=== PATIENT | male | born 1970 | race Caucasian/White ===

== ENCOUNTER 2017-03-09 00:41 | Inpatient (IN) | payer MEDICARE, MEDICAID ==
[2017-03-09] VITALS (9 sets, daily range): BP systolic 153–207; BP diastolic 64–82; PULSE 69–88; RESP 16–18; TEMP 96.6–99; O2SAT 90–100
[~2017-03-09] VITALS: Ht 182.9 cm; Wt 68.0 kg
[2017-03-09] MEDS ORDERED: CALC1CAP PO (00:56)
[2017-03-09] MEDS ORDERED: AMLO2.5T PO (00:56)
[2017-03-09] MEDS ORDERED: SEVE800T PO (00:56)
[2017-03-09] MEDS ORDERED: ABAC300T PO (00:56)
[2017-03-09] MEDS ORDERED: DOLU1TAB PO (00:56)
[2017-03-09] MEDS ORDERED: METO25TA6 PO (00:56)
[2017-03-09] MEDS ORDERED: DARU800T PO (00:56)
[2017-03-09] MEDS ORDERED: ONDANSETRON ODT 4 MG TAB PO ONE (01:15)
[2017-03-09] MEDS ORDERED: MORPHINE SULFATE 4 MG/ML INJ IM ONE (01:15)
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
[2017-03-09] MEDS ORDERED: SODIUM CHLOR 0.9% 1000 ML INJ 1,000 ML IV SCH (02:30)
[2017-03-09] MEDS ORDERED: MORPHINE SULFATE 4 MG/ML INJ IV PUSH ONE (02:30)
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
--- NOTE | 2017-03-09 02:56 | PD ---
Physical Exam Time Seen by Provider: 02:55 Data Data Last Documented VS Vital Signs Date Time Temp Pulse Resp B/P (MAP) Pulse Ox O2 Delivery O2 Flow Rate FiO2 03/09/17 00:46 98.4 72 16 153/64 (93) 100 Orders Orders Morphine Inj (Morphine Inj) (03/09/17 01:15) Ondansetron Odt (Zofran Odt) (03/09/17 01:15) Ct Brain W/O Iv Contrast(Rout) (03/09/17 01:14) Wrist, Complete ([id number]) (03/09/17 01:14) Electrocardiogram (03/09/17 02:24) Complete Blood Count With Diff (03/09/17 02:24) Comprehensive Metabolic Panel (03/09/17 02:24) Prothrombin Time / Inr (Pt) (03/09/17 02:24) Act Partial Throm Time (Ptt) (03/09/17 02:24) Magnesium (Mg) (03/09/17 02:24) Phosphorus (Po4) (03/09/17 02:24) Chest, Single Ap (03/09/17 02:24) Iv Access Insert/Monitor (03/09/17 02:24) Sodium Chlor 0.9% 1000 Ml Inj (Ns 1000 M (03/09/17 02:30) Morphine Inj (Morphine Inj) (03/09/17 02:30) Splint Or Brace Apply/Monitor (03/09/17 02:25) Sling Cradle Arm (03/09/17 ) Fiberglass Sugartong Sp Ad Arm (03/09/17 ) Amlodipine (Norvasc) (03/09/17 09:00) Abacavir (Ziagen) (03/09/17 09:00) Calcium Acetate (Phoslo) (03/09/17 09:00) Darunavir (Prezista) (03/09/17 09:00) Dolutegravir (Tivicay) (03/09/17 09:00) Sevelamer (Renvela) (03/09/17 09:00) Admit Order (Ed Use Only) (03/09/17 02:42) Consult Orthopedic (03/09/17 ) [facility] Medical Record Reviewed: Yes Supervised Visit with BOUCHRA: No Procedures Procedure Narrative LACERATION LOCATION: R Posterior scalp LENGTH: 2 cm NUMBER OF STITCHES/NE: 2 ne REPAIR: The area of the laceration was prepped with Betadine and sterilely draped. The wound was copiously irrigated and explored without evidence of foreign body, tendon injury or neurovascular injury. The wound was closed using ne. This was a single layer repair. Patient tolerated the procedure well. Diagnosis Primary Impression: Fracture of radius, right, closed Qualified Codes: S52.571A - Other intraarticular fracture of lower end of right radius, initial encounter for closed fracture Additional Impressions: Closed head injury Qualified Codes: S09.90XA - Unspecified injury of head, initial encounter Scalp laceration Qualified Codes: S01.01XA - Laceration without foreign body of scalp, initial encounter Condition: Stable Audrey Barrett Mar 09, 2017 02:56
[2017-03-09] MEDS ORDERED: SODIUM CHLOR 0.45% 1000 ML INJ 1,000 ML IV SCH (03:28)
[2017-03-09] MEDS ORDERED: LACTULOSE SYRUP 20 GM/30 ML CUP PO PRN (03:30)
[2017-03-09] MEDS ORDERED: BISACODYL 10 MG SUPP RECTAL PRN (03:30)
[2017-03-09] MEDS ORDERED: SENNOSIDES 8.6 MG TAB PO PRN (03:30)
[2017-03-09] MEDS ORDERED: SODIUM CHLORIDE 0.9% FLUSH 10 ML FLUSH IV FLUSH PRN ×2 (03:30→10:00)
[2017-03-09] MEDS ORDERED: ONDANSETRON HCL 4 MG/2 ML VIAL IVP PRN (03:30)
[2017-03-09] MEDS ORDERED: NALOXONE HCL 0.4 MG/ML AMP IV PUSH PRN ×2 (03:30)
[2017-03-09] MEDS ORDERED: MAGNESIUM HYDROXIDE SUSP 30 ML CUP PO PRN (03:30)
[2017-03-09 03:33] LABS: AUTOMATED NEUTROPHIL # 4.4 TH/MM3 (1.8-7.7); BASOPHIL % 0.8 % (0.0-2.0); EOSINOPHIL # 0.1 TH/MM3 (0-0.4); EOSINOPHIL % 1.1 % (0.0-4.0); HEMATOCRIT 32.6 % (39.0-51.0); HEMO FLAGS DIFF FINAL; LYMPH % 21.6 % (9.0-44.0); LYMPHOCYTE # 1.4 TH/MM3 (1.0-4.8); MEAN CELL VOLUME 102.2 FL (80.0-100.0); MEAN CORPUSCULAR HEMOGLOBIN 33.3 PG (27.0-34.0); MEAN CORPUSCULAR HGB CONC 32.6 % (32.0-36.0); MONO % 9.6 % (0.0-8.0); NEUT % 66.9 % (16.0-70.0); PLATELET COUNT 150 TH/MM3 (150-450); RED BLOOD COUNT 3.19 MIL/MM3 (4.50-5.90); RED CELL DISTRIBUTION WIDTH 15.3 % (11.6-17.2); WHITE BLOOD COUNT 6.5 TH/MM3 (4.0-11.0)
[2017-03-09 03:41] LABS: APTT (PATIENT) 26.6 SEC (24.3-30.1); PROTHROMBIN TIME - PATIENT 11.4 SEC (9.8-11.6)
[2017-03-09 03:48] LABS: ALT (GPT) 39 U/L (12-78); ANION GAP 12 MEQ/L (5-15); AST (GOT) 16 U/L (15-37); BICARBONATE 20.4 MEQ/L (21.0-32.0); BLOOD UREA NITROGEN 69 MG/DL (7-18); CHLORIDE 105 MEQ/L (98-107); GLOMERULAR FILTRATION RATE 4 ML/MIN (>89); MAGNESIUM 3.1 MG/DL (1.5-2.5); POTASSIUM 5.9 MEQ/L (3.5-5.1); SODIUM (NA) 137 MEQ/L (136-145)
[2017-03-09 03:50] LABS: ALKALINE PHOSPHATASE 122 U/L (45-117); TOTAL BILIRUBIN ADULT 0.4 MG/DL (0.2-1.0)
[2017-03-09] MEDS: ACETAMINOPHEN/HYDROcodone 325 MG/5 MG TAB PO PRN ×4 (03:51→19:36)
[2017-03-09] MEDS ORDERED: CHLORHEXIDINE GLUCONATE 2 % 1 PACK (2 CLOTHS) TOPICAL PRN (04:00)
[2017-03-09] MEDS ORDERED: SODIUM CHLORID 0.9% 500 ML IV PRN (04:00)
[2017-03-09] MEDS ORDERED: METOPROLOL TARTRATE 25 MG TAB PO PRN (04:00)
[2017-03-09] MEDS ORDERED: POVIDONE IODINE 5% (ANTISEPSIS KIT) 4 APPLICATIONS EACH NARE PRN (04:00)
[2017-03-09] MEDS ORDERED: INSULIN HUMAN REGULAR 1,000 UNITS/10 ML VIAL SQ PRN (04:00)
[2017-03-09] MEDS ORDERED: LACTATED RINGER'S 1000 ML IV PRN (04:00)
[2017-03-09] MEDS: MORPHINE SULFATE 4 MG/ML INJ IV PUSH PRN ×4 (05:49→21:12)
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
[2017-03-09] MEDS ORDERED: HYDR-3580 PO (06:54)
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
[2017-03-09] MEDS: SODIUM CHLORIDE 0.9% FLUSH 10 ML FLUSH IV FLUSH SCH ×2 (08:20→19:41)
[2017-03-09] MEDS: DOLUTEGRAVIR SODIUM 50 MG TAB PO SCH (08:21)
[2017-03-09] MEDS: ABACAVIR SULFATE 300 MG TAB PO SCH ×2 (08:21→19:37)
[2017-03-09] MEDS: DARUNAVIR 800 MG TAB PO SCH (08:22)
[2017-03-09] MEDS: amLODIPine BESYLATE 5 MG TAB PO SCH (08:22)
[2017-03-09] MEDS: SEVELAMER CARBONATE 800 MG TAB PO SCH ×3 (09:00→17:04)
[2017-03-09] MEDS: CALCIUM ACETATE 667 MG CAP PO SCH ×3 (09:47→17:04)
[2017-03-09] MEDS ORDERED: SODIUM CHLOR 0.9% 1000 ML INJ 1,000 ML OTHER PRN ×2 (09:57)
[2017-03-09] MEDS ORDERED: SODIUM CHLOR 0.9% 1000 ML INJ 1,000 ML IV PRN (09:57)
[2017-03-09] MEDS ORDERED: ONDANSETRON HCL 4 MG/2 ML VIAL IV PUSH PRN (10:00)
[2017-03-09] MEDS ORDERED: diphenhydrAMINE HCL 25 MG CAP PO PRN (10:00)
[2017-03-09] MEDS ORDERED: MANNITOL 12.5 GM/50 ML VIAL IV PRN (10:00)
[2017-03-09] MEDS ORDERED: HEPARIN SODIUM - IV 10,000 UNITS/10 ML VIAL IV FLUSH PRN (10:00)
[2017-03-09] MEDS ORDERED: GENTAMICIN SULFATE (DIALYSIS USE ONLY) 20 MG/2 ML VIAL OTHER PRN (10:00)
[2017-03-09] MEDS ORDERED: EPOETIN ALFA 10,000 UNITS/ML VIAL IV PRN (10:00)
[2017-03-09] MEDS ORDERED: NITROGLYCERIN 0.4 MG SL 25 TABS/BTL SL PRN (10:00)
[2017-03-09] MEDS ORDERED: ACETAMINOPHEN 325 MG TAB PO PRN (10:00)
[2017-03-09] MEDS ORDERED: HEPARIN SODIUM - IV 10,000 UNITS/10 ML VIAL PRN (10:00)
[2017-03-09] MEDS ORDERED: ALBUMIN HUMAN 25% 25 GM/100 ML BAGP IV PRN (10:00)
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
--- NOTE | 2017-03-09 11:52 | HHI.PR ---
Subjective Remarks Follow-up right distal radius fracture/end-stage renal disease on hemodialysis/ HIV 03/09/17-patient seen and examined, complains of inadequate pain control to right upper extremity Objective Vitals Vital Signs Date Time Temp Pulse Resp B/P (MAP) Pulse Ox O2 Delivery O2 Flow Rate FiO2 03/09/17 08:00 96.7 76 16 191/71 (111) 90 03/09/17 04:21 97.0 71 16 184/82 (116) 95 03/09/17 04:09 72 16 177/75 (109) 97 03/09/17 03:53 71 16 175/80 (111) 97 Room Air 03/09/17 02:52 69 16 172/79 (110) 97 Room Air 03/09/17 00:46 98.4 72 16 153/64 (93) 100 I/O 03/08/17 03/08/17 03/08/17 03/09/17 03/09/17 03/09/17 07:00 15:00 23:00 07:00 15:00 23:00 Intake Total 109 ml 540 ml Balance 109 ml 540 ml Intake Oral 0 ml IV Total 109 ml 540 ml # Voids 0 # Bowel Movements 0 Result Diagram: 03/09/1724903/09/17249 Imaging Last Impressions Chest X-Ray 03/09/17223 Signed Impressions: Service Date/Time: Thursday, March 09, 2017 02:26 - CONCLUSION: 1. Subsegmental airspace disease left lung base with small left effusion. Cardiomegaly. Alen Montez MD Wrist X-Ray 03/09/17113 Signed Impressions: Service Date/Time: Thursday, March 09, 2017 01:37 - CONCLUSION: 1. Mildly displaced intra-articular fractures distal radius without dislocation. Alen Montez MD Head CT 03/09/17113 Signed Impressions: Service Date/Time: Thursday, March 09, 2017 01:27 - CONCLUSION: Normal examination for a patient of this age. Alen Montez MD Objective Remarks GENERAL: NAD SKIN: Warm and dry. HEAD: Normocephalic. EYES: No scleral icterus. No injection or drainage. NECK: Supple, trachea midline. No JVD or lymphadenopathy. CARDIOVASCULAR: Regular rate and rhythm without murmurs, gallops, or rubs. RESPIRATORY: Breath sounds equal bilaterally. No accessory muscle use. GASTROINTESTINAL: Abdomen soft, non-tender, nondistended. MUSCULOSKELETAL: No cyanosis, or edema. Dressing over right wrist BACK: Nontender without obvious deformity. No CVA tenderness. A/P Problem List: (1) Fracture of radius, right, closed ICD Code: S52.91XA - Unspecified fracture of right forearm, initial encounter for closed fracture Status: Acute (2) Scalp laceration ICD Code: S01.01XA - Laceration without foreign body of scalp, initial encounter Status: Acute (3) HIV (human immunodeficiency virus infection) ICD Code: B20 - Human immunodeficiency virus [HIV] disease (4) End-stage renal disease on hemodialysis ICD Code: N18.6 - End stage renal disease; Z99.2 - Dependence on renal dialysis (5) Hypertension ICD Code: I10 - Essential (primary) hypertension Assessment and Plan 46-year-old male with Distal radius fracture: Orthopedics has been consulted. - Conservative management per orthopedic surgery Headache/scalp laceration: This has been repaired with ne. Appear clean. Continue to monitor. Pain control as needed. End-stage renal disease on hemodialysis -Appreciate input from nephrology and plan for hemodialysis today HIV: Continue home dose antivirals Hypertension -BP labile despite meds. Patient will have hemodialysis today, however if not controlled will keep him in the hospital for better control of blood pressure Problem Qualifiers (1) Fracture of radius, right, closed: Qualified Codes: S52.571A - Other intraarticular fracture of lower end of right radius, initial encounter for closed fracture (2) Scalp laceration: Qualified Codes: S01.01XA - Laceration without foreign body of scalp, initial encounter Darion Levin MD Mar 09, 2017 11:52
--- NOTE | 2017-03-09 13:49 | EKG ---
Date Performed: 03/09/2017 Time Performed: 02:45:34 PTAGE: 46 years EKG: Sinus rhythm NORMAL ECG NO PREVIOUS TRACING DOCTOR: Tomas Locke Interpretating Date/Time 03/09/2017 13:47:34
[2017-03-09] MEDS: GELATIN 12 MM/7 MM FOAM TOP PRN (15:49)
[2017-03-09] MEDS: cloNIDine HCL 0.1 MG TAB PO PRN (15:49)
[2017-03-09] MEDS ORDERED: hydrALAZINE HCL 25 MG TAB PO PRN (17:45)
[2017-03-10] VITALS: BP 218/83; PULSE 95; RESP 17; TEMP 99.5; O2SAT 99
[2017-03-10] MEDS: cloNIDine HCL 0.1 MG TAB PO PRN (01:07)
[2017-03-10] MEDS: ACETAMINOPHEN/HYDROcodone 325 MG/5 MG TAB PO PRN ×2 (01:07→12:34)
[2017-03-10] MEDS: MORPHINE SULFATE 4 MG/ML INJ IV PUSH PRN (01:54)
[2017-03-10 04:00] VITALS: BP 146/69; PULSE 78; RESP 16; TEMP 96; O2SAT 97
[2017-03-10 08:00] VITALS: BP 191/76; PULSE 78; RESP 18
[2017-03-10] MEDS: SODIUM CHLORIDE 0.9% FLUSH 10 ML FLUSH IV FLUSH SCH (09:00)
[2017-03-10] MEDS: GELATIN 12 MM/7 MM FOAM TOP PRN (09:33)
[2017-03-10] MEDS ORDERED: INFLUENZA VIRUS VACCINE (QUADRIVALENT) 0.5 ML SYR IM ONE (10:00)
--- NOTE | 2017-03-10 11:33 | HHI.PR ---
Subjective Remarks Follow-up right distal radius fracture/end-stage renal disease on hemodialysis/ HIV 03/09/17-patient seen and examined, complains of inadequate pain control to right upper extremity 03/10/17-patient seen and examined in dialysis center. Denies any headaches or heart palpitations. Blood pressure still up and this appears to be from inappropriate recording. Case was discussed with patient's spouse Objective Vitals Vital Signs Date Time Temp Pulse Resp B/P (MAP) Pulse Ox O2 Delivery O2 Flow Rate FiO2 03/10/17 08:00 78 18 191/76 (114) 03/10/17 04:00 96.0 78 16 146/69 (94) 97 03/10/17 00:00 99.5 95 17 218/83 (128) 99 03/09/17 20:02 99.0 88 17 188/79 (115) 99 03/09/17 16:00 96.8 88 18 207/81 (123) 90 03/09/17 12:00 96.6 69 16 189/72 (111) I/O 03/09/17 03/09/17 03/09/17 03/10/17 03/10/17 03/10/17 07:00 15:00 23:00 07:00 15:00 23:00 Intake Total 109 ml 540 ml 480 ml 300 ml Output Total 2500 ml Balance 109 ml 540 ml -2020 ml 300 ml Intake Oral 0 ml 480 ml 300 ml IV Total 109 ml 540 ml Output Hemodialysis 2500 ml # Voids 0 1 2 # Bowel Movements 0 0 0 Result Diagram: 03/09/17 02503/09/17 025 Imaging Last Impressions Chest X-Ray 03/09/17223 Signed Impressions: Service Date/Time: Thursday, March 09, 2017 02:26 - CONCLUSION: 1. Subsegmental airspace disease left lung base with small left effusion. Cardiomegaly. Alen Montez MD Wrist X-Ray 03/09/17113 Signed Impressions: Service Date/Time: Thursday, March 09, 2017 01:37 - CONCLUSION: 1. Mildly displaced intra-articular fractures distal radius without dislocation. Alen Montez MD Head CT 03/09/17113 Signed Impressions: Service Date/Time: Thursday, March 09, 2017 01:27 - CONCLUSION: Normal examination for a patient of this age. Alen Montez MD Objective Remarks GENERAL: NAD SKIN: Warm and dry. HEAD: Normocephalic. EYES: No scleral icterus. No injection or drainage. NECK: Supple, trachea midline. No JVD or lymphadenopathy. CARDIOVASCULAR: Regular rate and rhythm without murmurs, gallops, or rubs. RESPIRATORY: Breath sounds equal bilaterally. No accessory muscle use. GASTROINTESTINAL: Abdomen soft, non-tender, nondistended. MUSCULOSKELETAL: No cyanosis, or edema. Dressing over right wrist BACK: Nontender without obvious deformity. No CVA tenderness. A/P Problem List: (1) Fracture of radius, right, closed ICD Code: S52.91XA - Unspecified fracture of right forearm, initial encounter for closed fracture Status: Acute (2) Scalp laceration ICD Code: S01.01XA - Laceration without foreign body of scalp, initial encounter Status: Acute (3) HIV (human immunodeficiency virus infection) ICD Code: B20 - Human immunodeficiency virus [HIV] disease (4) End-stage renal disease on hemodialysis ICD Code: N18.6 - End stage renal disease; Z99.2 - Dependence on renal dialysis (5) Hypertension ICD Code: I10 - Essential (primary) hypertension Assessment and Plan 46-year-old male with Distal radius fracture: Orthopedics has been consulted. - Conservative management per orthopedic surgery -He will need 10-14 days for followup x-ray. At that point orthopedic surgery will plan on casting -Continue current pain management Headache/scalp laceration: This has been repaired with ne. Appear clean. Continue to monitor. Pain control as needed. End-stage renal disease on hemodialysis -Appreciate input from nephrology -again patient had hemodialysis today with 2 L of fluid out HIV: Continue home dose antivirals Hypertension -BP labile despite meds. -Likely due to abnormal recording -Will continue outpatient medication as well as when necessary Problem Qualifiers (1) Fracture of radius, right, closed: Qualified Codes: S52.571A - Other intraarticular fracture of lower end of right radius, initial encounter for closed fracture (2) Scalp laceration: Qualified Codes: S01.01XA - Laceration without foreign body of scalp, initial encounter Darion Levin MD Mar 10, 2017 11:33
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
[2017-03-10] MEDS: CALCIUM ACETATE 667 MG CAP PO SCH (12:19)
[2017-03-10] MEDS: amLODIPine BESYLATE 5 MG TAB PO SCH (12:19)
[2017-03-10] MEDS: SEVELAMER CARBONATE 800 MG TAB PO SCH (12:19)
[2017-03-10] MEDS: ABACAVIR SULFATE 300 MG TAB PO SCH (12:19)
[2017-03-10] MEDS: DARUNAVIR 800 MG TAB PO SCH (12:19)
[2017-03-10 12:20] VITALS: BP 159/69; PULSE 81; RESP 18; TEMP 97.6; O2SAT 92
[2017-03-10] MEDS: DOLUTEGRAVIR SODIUM 50 MG TAB PO SCH (12:20)
--- NOTE | 2017-03-10 22:25 | HHI.NPPN ---
Subjective History of Present Illness 46-year-old male with past medical history of hypertension, HIV, end-stage renal disease on hemodialysis since 2007. He has been getting hemodialysis in [place]. He was visiting here and came to the hospital because of trauma with a scalp laceration and fracture of the right radius. I was called to see the patient because of hemodialysis and hyperkalemia. The patient has been on hemodialysis Thursday, and Thursday. Additional Remarks Patient seen in AM on HD, alert, mild SOB, not in distress, on room air. Objective Data Data 03/10/17 03/11/17 19:00 07:00 Output Total 2300 ml Balance -2300 ml Output Hemodialysis 2300 ml Vital Signs Date Time Temp Pulse Resp B/P (MAP) Pulse Ox O2 Delivery O2 Flow Rate FiO2 03/10/17 12:20 97.6 81 18 159/69 (99) 92 03/10/17 08:00 78 18 191/76 (114) 03/10/17 04:00 96.0 78 16 146/69 (94) 97 03/10/17 00:00 99.5 95 17 218/83 (128) 99 -: 03/09/17 0250 03/09/17 0250 Physical Exam General Appearance: No Acute Distress, Comfortable Eyes Eye Exam: Pupils Equal Throat Throat Exam: Oral Mucosa [place] & Moist Neck Neck Exam: Neck Supple, Trachea Midline Pulmonary Resp Exam: Breath Sounds Equal, No Distress, Rhonchi, Decreased Bases, Diminished Breath Sounds Cardiology CV Exam: Regular, Normal Sinus Rhythm Gastrointestinal/Abdomen GI Exam: Soft, Non-Tender, Bowel Sounds Present Genitourinary Exam: Clear Urine Extremeties Extremities Exam: Trace Edema Neurologic Neuro Exam: Alert, Awake, Oriented Psychiatric Psych Exam: Appropriate Responses Assessment/Plan Assessment Summary: Anemia of CKD, Fluid/Volume Overload, Hypertension, End Stage Renal Disease Problem List: (1) Fluid overload ICD Codes: E87.70 - Fluid overload, unspecified (2) Hypertension ICD Codes: I10 - Essential (primary) hypertension (3) HIV (human immunodeficiency virus infection) ICD Codes: B20 - Human immunodeficiency virus [HIV] disease (4) End-stage renal disease on hemodialysis ICD Codes: N18.6 - End stage renal disease; Z99.2 - Dependence on renal dialysis Plan Patient has HD now, remove fluid as tolerated. BP is still elevated. Follow the BP post HD, if stable, possible D/C. Told to be compliant with salt and fluid intake, and also compliance with his HD treatment. Once D/C to follow with his primary Compensation Supervisor. Tyrone Mckoy MD Mar 10, 2017 22:25
== END 2017-03-10 14:22 | disposition home or self-care (01) | DRG 562 ==
LOC: NEPC 00:41 → NEDA 02:45 → N06A 04:26
PROVIDERS: ADMIT Hospitalist; ATTEND Hospitalist
PROC: 0HQ0XZZ Repair Scalp Skin, External Approach (ICD-10-PCS; principal; 2017-03-09)
PROC: 5A1D60Z (ICD-10-PCS; 2017-03-10)
DX: S52.571A Other intraarticular fracture of lower end of right radius, initial encounter for closed fracture (principal); N18.6 End stage renal disease; E87.2 Acidosis; I12.0 Hypertensive chronic kidney disease with stage 5 chronic kidney disease or end stage renal disease; E87.70 Fluid overload, unspecified; S01.01XA Laceration without foreign body of scalp, initial encounter; D63.1 Anemia in chronic kidney disease; Y04.8XXA Assault by other bodily force, initial encounter; Y93.89 Activity, other specified; Y99.9 Unspecified external cause status; Z72.0 Tobacco use; Z99.2 Dependence on renal dialysis; E87.5 Hyperkalemia; Y92.59 Other trade areas as the place of occurrence of the external cause; Z21 Asymptomatic human immunodeficiency virus [HIV] infection status
CPT/HCPCS: 12001; 29125; 70450; 71010; 73110; 80053; 83735; 84100; 85025; 85610; 85730; 90935; 93005; 96372; 96374; J2270; J7030; Q4081